=== PATIENT | female | born 1985 | race Caucasian/White ===

== ENCOUNTER 2018-09-18 19:39 | Emergency (ER) | payer OTHER ==
[2018-09-18] MEDS ORDERED: cloNIDine 0.1 MG TAB ONE (20:36)
[2018-09-18] MEDS ORDERED: Promethazine HCl 25 MG/ML VIAL ONE (20:36)
== END 2018-09-18 21:25 | disposition home or self-care (01) ==
LOC: MADERS 19:39
DX: I10 Essential (primary) hypertension (principal); F32.9 Major depressive disorder, single episode, unspecified; Z79.899 Other long term (current) drug therapy
CPT/HCPCS: 96372; J2550

== ENCOUNTER 2019-08-28 15:22 | Outpatient (CLI) | payer OTHER ==
[2019-08-28 16:01] LABS: ALT (SGPT) 32 U/L (8-55); AST (SGOT) 34 U/L (5-34); Albumin 4.2 g/dL (3.5-5.0); Alkaline Phosphatase 93 U/L (40-110); Anion Gap 14 mmol/L (10-20); BUN (Urea Nitrogen) 12 mg/dL (7.0-18.7); Bilirubin, Total 0.4 mg/dL (0.2-1.2); Calc. Creatinine Clearance 0 mL/min (70-130); Calcium 8.9 mg/dL (7.8-10.44); Carbon Dioxide 24 mmol/L (22-29); Chloride 107 mmol/L (98-107); Estimated GFR-MDRD Greater than 90; Globulin 2.9 g/dL (2.4-3.5); Glucose 77 mg/dL (70-105); Potassium 3.9 mmol/L (3.5-5.1); Protein, Total 7.1 g/dL (6.0-8.3); Sodium 141 mmol/L (136-145)
== END 2019-08-28 15:23 | disposition home or self-care (01) ==
LOC: MADLABBHPM 15:22
PROVIDERS: ATTEND Family Medicine
DX: R60.9 Edema, unspecified (principal)
CPT/HCPCS: 36415; 80053; 83880; 84443; 85379

== ENCOUNTER 2020-08-04 11:05 | Outpatient (CLI) | payer BC ==
--- NOTE | 2020-08-04 11:41 | RAD ---
XR Foot Lt 3 View STANDARD HISTORY: Injury, left foot pain FINDINGS: No fracture or dislocation is identified. Posterior and plantar calcaneal enthesophytes are present
== END 2020-08-04 11:06 | disposition home or self-care (01) ==
LOC: MADLABBHPM 11:05
PROVIDERS: ATTEND Family Medicine
DX: M79.672 Pain in left foot (principal)

== ENCOUNTER 2020-08-04 19:02 | Emergency (ER) | payer BC ==
[2020-08-04] MEDS ORDERED: Dexamethasone 10 MG/ML VIAL ONE (19:51)
[2020-08-04] MEDS ORDERED: Bicillin LA 1.2 MILLION UNITS/2 ML SYRINGE ONE (19:51)
== END 2020-08-04 20:21 | disposition home or self-care (01) ==
LOC: MADERS 19:02
DX: J02.9 Acute pharyngitis, unspecified (principal); I10 Essential (primary) hypertension; K21.9 Gastro-esophageal reflux disease without esophagitis; R73.03 Prediabetes; F41.9 Anxiety disorder, unspecified; F32.9 Major depressive disorder, single episode, unspecified; Z79.899 Other long term (current) drug therapy; Z79.891 Long term (current) use of opiate analgesic
CPT/HCPCS: 96372; 99283; J0561; J1100

== ENCOUNTER 2020-10-04 16:42 | Emergency (ER) | payer BC ==
[2020-10-04] MEDS ORDERED: Acetaminophen 500 MG TAB ONE (18:01)
[2020-10-04] MEDS ORDERED: Ibuprofen 800 MG TAB ONE (18:01)
--- NOTE | 2020-10-04 18:12 | RAD ---
3 views right foot: 10/04/2020 COMPARISON: None HISTORY: Injury, trauma, pain FINDINGS: No fracture or dislocation. No radiopaque foreign body or subcutaneous gas. Mild enthesophy te formation at the origin of the plantar aponeurosis and the insertion of the Achilles tendon. IMPRESSION: No acute findings.
== END 2020-10-04 18:25 | disposition home or self-care (01) ==
LOC: MADERS 16:42
DX: S90.31XA Contusion of right foot, initial encounter (principal); I10 Essential (primary) hypertension; K21.9 Gastro-esophageal reflux disease without esophagitis; E28.2 Polycystic ovarian syndrome; Z79.899 Other long term (current) drug therapy; W50.0XXA Accidental hit or strike by another person, initial encounter

== ENCOUNTER 2021-11-26 02:48 | Emergency (ER) | payer BC ==
[2021-11-26 04:40] LABS: Pregnancy Test - Urine (BHCG) Negative (Negative); Pregu Control Background? CLEAR/WHITE (CLR/WHITE); Pregu Control Bar Appear? YES (CONTROL BAR); Specific Gravity 1.033 (1.002-1.036)
[2021-11-26] MEDS ORDERED: Ketorolac Tromethamine 30 MG/ML VIAL ONE (04:58)
[2021-11-26] MEDS ORDERED: Ondansetron PF 4 MG/2 ML Vial ONE (04:58)
[2021-11-26] MEDS ORDERED: Lactated Ringer's 1,000 ML ONE (04:58)
[2021-11-26 06:00] LABS: #Basophils 0.1 thou/uL (0.0-0.2); #Eosinphils 0.2 thou/uL (0.0-0.7); #Lymphocytes 1.3 thou/uL (1.20-3.40); #Monocytes 0.6 thou/uL (0.11-0.59); #Neutrophils 7.5 thou/uL (1.40-6.50); %Basophils 0.7 % (0.0-1.0); %Eosinophils 1.7 % (0.0-10.0); %Lymphocytes 13.2 % (21.0-51.0); %Monocytes 6.6 % (0.0-10.0); %Neutrophils 77.8 % (42.0-75.0); Hemoglobin 18.9 g/dL (12.0-16.0); Mean Corpuscular HGB CONC 33.5 g/dL (32.0-36.0); Mean Corpuscular Hemoglobin 29.1 pg (27.0-31.0); Mean Corpuscular Volume 86.8 fL (78.0-98.0); Mean Platelet Volume 6.7 fL (7.4-10.4); Platelet Count 168 thou/uL (130-400); RBC Distribution Width 12.1 % (11.5-14.5); Red Blood Cell (RBC) Count 6.49 mill/uL (4.20-5.40); White Blood Cell (WBC) Count 9.6 thou/uL (4.8-10.8)
[2021-11-26 06:18] LABS: ALT (SGPT) 20 U/L (8-55); AST (SGOT) 29 U/L (5-34); Albumin 4.4 g/dL (3.5-5.0); Alkaline Phosphatase 85 U/L (40-110); Anion Gap 15 mmol/L (10-20); BUN (Urea Nitrogen) 18 mg/dL (7.0-18.7); Bilirubin, Total 0.8 mg/dL (0.2-1.2); Calc. Creatinine Clearance 0 mL/min (70-130); Calcium 9.9 mg/dL (7.8-10.44); Carbon Dioxide 26 mmol/L (22-29); Chloride 103 mmol/L (98-107); Globulin 3.2 g/dL (2.4-3.5); Glucose 118 mg/dL (70-105); Lipase 17 U/L (8-78); Potassium 4.2 mmol/L (3.5-5.1); Protein, Total 7.6 g/dL (6.0-8.3); Sodium 140 mmol/L (136-145)
[2021-11-26] MEDS ORDERED: Fentanyl 100 MCG/2 ML VIAL ONE (07:22)
[2021-11-26] MEDS ORDERED: Famotidine In NaCl 20 mg/50 ml Premix Bag ONE (07:22)
[2021-11-26] MEDS ORDERED: Iopamidol 370 76% 100 ML VIAL ONE (12:39)
== END 2021-11-26 08:39 | disposition short-term general hospital (02) ==
LOC: MADERS 02:48
DX: R10.11 Right upper quadrant pain (principal); R55 Syncope and collapse; I10 Essential (primary) hypertension; K21.9 Gastro-esophageal reflux disease without esophagitis; E28.2 Polycystic ovarian syndrome; Z79.899 Other long term (current) drug therapy
CPT/HCPCS: 74177; 80053; 81025; 83605; 83690; 85025; 93005; 94760; 96365; 96375; J1885; J2405; J3010; J7120; Q9967

== ENCOUNTER 2021-12-28 16:39 | Outpatient (CLI) | payer BC ==
[2021-12-28 17:07] LABS: #Basophils 0.1 thou/uL (0.0-0.2); #Eosinphils 0.6 thou/uL (0.0-0.7); #Monocytes 0.8 thou/uL (0.11-0.59); #Neutrophils 3.6 thou/uL (1.40-6.50); %Basophils 1.2 % (0.0-1.0); %Eosinophils 7.9 % (0.0-10.0); %Monocytes 11.1 % (0.0-10.0); %Neutrophils 50.7 % (42.0-75.0); Hemoglobin 14.1 g/dL (12.0-16.0); Mean Corpuscular HGB CONC 32.4 g/dL (32.0-36.0); Mean Corpuscular Hemoglobin 30.4 pg (27.0-31.0); Mean Corpuscular Volume 93.8 fL (78.0-98.0); Platelet Count 239 thou/uL (130-400); RBC Distribution Width 12.2 % (11.5-14.5); Red Blood Cell (RBC) Count 4.64 mill/uL (4.20-5.40)
[2021-12-28 17:16] LABS: ALT (SGPT) 14 U/L (8-55); AST (SGOT) 17 U/L (5-34); Albumin 4.3 g/dL (3.5-5.0); Alkaline Phosphatase 79 U/L (40-110); Anion Gap 17 mmol/L (10-20); BUN (Urea Nitrogen) 14 mg/dL (7.0-18.7); Bilirubin, Total 0.3 mg/dL (0.2-1.2); Calc. Creatinine Clearance 0 mL/min (70-130); Calcium 9.6 mg/dL (7.8-10.44); Carbon Dioxide 24 mmol/L (22-29); Chloride 103 mmol/L (98-107); Globulin 3.4 g/dL (2.4-3.5); Glucose 87 mg/dL (70-105); Potassium 4.1 mmol/L (3.5-5.1); Protein, Total 7.7 g/dL (6.0-8.3); Sodium 140 mmol/L (136-145)
== END 2021-12-28 16:40 | disposition home or self-care (01) ==
LOC: MADRAD 16:39
PROVIDERS: ATTEND Family Medicine
DX: J20.9 Acute bronchitis, unspecified (principal); R52 Pain, unspecified
CPT/HCPCS: 36415; 71046; 80053; 85025

== ENCOUNTER 2023-05-18 18:05 | Emergency (ER) | payer BC ==
[~2023-05-18 18:05] MED LIST: Iopamidol 370 76% 100 ML VIAL ONE; Sodium Chloride 0.9% 1,000 ML BAG ONE
[2023-05-18] MEDS ORDERED: Ondansetron PF 4 MG/2 ML Vial ONE (20:31)
[2023-05-18] MEDS ORDERED: fentaNYL 50 mcg/mL 1 mL Vial ONE ×2 (20:31→22:27)
[2023-05-18] MEDS ORDERED: Sodium Chloride 0.9% 1,000 ML ONE (20:31)
[2023-05-18] MEDS ORDERED: Labetalol HCl 100 MG/20 ML VIAL ONE (20:31)
[2023-05-18 20:58] LABS: Eosinophils 1 % (0-10); Hematocrit 38.1 % (36.0-47.0); Hemoglobin 12.9 g/dL (12.0-16.0); Lymphocytes 29 % (21-51); MDiff Complete? YES; Mean Corpuscular HGB CONC 33.7 g/dL (32.0-36.0); Mean Corpuscular Hemoglobin 30.8 pg (27.0-31.0); Mean Corpuscular Volume 91.3 fl (78.0-98.0); Mean Platelet Volume 8.4 fL (7.4-10.4); Monocytes 7 % (0-10); Neutrophil 63 % (42-75); Platelet Count 233 10x3/uL (130-400); RBC Distribution Width 12.1 % (11.5-14.5); Red Blood Cell (RBC) Count 4.18 mill/uL (4.20-5.40); White Blood Cell (WBC) Count 9.1 10x3/uL (4.8-10.8)
[2023-05-18 21:16] LABS: ALT (SGPT) 13 U/L (8-55); AST (SGOT) 20 U/L (5-34); Albumin 3.9 g/dL (3.5-5.0); Alkaline Phosphatase 78 U/L (40-110); Anion Gap 14 mmol/L (10-20); BUN (Urea Nitrogen) 14 mg/dL (7.0-18.7); Bilirubin, Total 0.2 mg/dL (0.2-1.2); Calc. Creatinine Clearance 0 mL/min (70-130); Calcium 8.8 mg/dL (7.8-10.44); Carbon Dioxide 23 mmol/L (22-29); Chloride 106 mmol/L (98-107); Estimated GFR 87; Globulin 3.1 g/dL (2.4-3.5); Glucose 109 mg/dL (70-105); Lipase 39 U/L (8-78); Sodium 139 mmol/L (136-145)
[2023-05-18 22:28] LABS: Bilirubin Negative (Negative); Blood, Urine Negative (Negative); Glucose, Urine (Dipstick) Negative (Negative); Ketone, Urine Trace mg/dL (Negative); Leukocyte Negative (Negative); Nitrite Negative (Negative); Protein, Urine (Dipstick) Negative (Neg-Trace); Urobilinogen 0.2 mg/dL (Less than 2); pH, Urine 5.5 (5.0-9.0)
[2023-05-18 22:29] LABS: Pregnancy Test - Urine (BHCG) Negative (Negative); Pregu Control Background? CLEAR/WHITE (CLR/WHITE); Pregu Control Bar Appear? YES (CONTROL BAR); Specific Gravity 1.026 (1.002-1.036)
[2023-05-18 22:30] LABS: Specific Gravity, Urine 1.026 (1.002-1.036)
[2023-05-18 22:31] LABS: CAUTI Indications for Culture Dysuria,urgency,freq; Clarity Hazy (Clear); RBC/HPF 0-3 HPF (0-3); Squamous Epithelial 0-3 HPF (0-3); WBC/HPF 0-3 HPF (0-3)
[2023-05-18 22:32] LABS: Bacteria/HPF Rare-Few HPF (None Seen); Mucous/LPF 3+ LPF (<2+)
[2023-05-18 22:33] LABS: Urine Culture Reflex No No
[2023-05-19] MEDS ORDERED: Pantoprazole 40 MG VIAL ONE (00:18)
[2023-05-19] MEDS ORDERED: Sodium Chloride 0.9% 100 ML ONE (00:18)
== END 2023-05-19 00:45 | disposition home or self-care (01) ==
LOC: MADERS 18:05
DX: K29.00 Acute gastritis without bleeding (principal); I10 Essential (primary) hypertension; Z79.899 Other long term (current) drug therapy
CPT/HCPCS: 74177; 80053; 81001; 81025; 83605; 83690; 85025; 96361; 96374; 96375; 96376; C9113; J2405; J3010; J3490; J7050; Q9967

== ENCOUNTER 2024-11-14 19:17 | Emergency (ER) | payer BC ==
[2024-11-14] MEDS ORDERED: Aspirin Chewable 81 MG TAB ONE (20:10)
== END 2024-11-14 20:29 | disposition home or self-care (01) ==
LOC: MADERS 19:17
DX: I10 Essential (primary) hypertension (principal); K76.0 Fatty (change of) liver, not elsewhere classified; Z79.899 Other long term (current) drug therapy
CPT/HCPCS: 99283